=== PATIENT | male | born 1985 | race Caucasian/White ===

== ENCOUNTER 2022-02-10 20:57 | Emergency (ER) | payer OTHER, SELFPAY ==
[2022-02-10 21:21] VITALS: BP 154/99; PULSE 79; RESP 15; TEMP 35.9; O2SAT 100; BMI 28.8
[2022-02-10] MEDS: KETOROLAC 30 MG/ML VIAL IV (22:26)
[2022-02-10 22:27] LABS: Add Manual Diff / Slide Review NO; Basophils Absolute Auto 100 /uL (0-100); Basophils Percent Auto 0.6 % (0-2); Eosinophils Absolute Auto 100 /uL (0-450); Eosinophils Percent Auto 1.2 % (2-4); Hematocrit 42.6 % (41-53); Hemoglobin 15.2 g/dL (13.5-17.5); Lymphocytes Absolute Auto 2200 /uL (1100-4500); Lymphocytes Percent Auto 18.5 % (25-40); Mean Corpuscular HGB Conc 35.7 % (30-36); Mean Corpuscular Hemoglobin 32.2 PG (26-34); Mean Corpuscular Volume 90.3 fL (80-100); Monocytes Absolute Auto 1000 /uL (0-900); Monocytes Percent Auto 8.4 % (3-14); Neutrophils Absolute Auto 8300 /uL (1500-7000); Neutrophils Percent Auto 71.3 % (50-75); Platelet Count 297 X10^3/uL (150-400); Red Blood Cell Count 4.71 X10^6/uL (4.5-5.9); Red Cell Distribution Width 12.5 % (11.6-14.8); White Blood Cell Count 11.7 X10^3/uL (4.5-11.0)
[2022-02-10] MEDS: ONDANSETRON 4 MG/2 ML INJ IV (22:27)
--- NOTE | 2022-02-10 22:31 | DI.CT.S_ITS ---
PROCEDURE: CT KIDNEY URETER BLADDER (KUB) INDICATIONS: lft flank pain TECHNIQUE: Axial sections were acquired from the lung bases to the pubic symphysis. Coronal and sagittal reformats were performed. For radiation dose reduction, the following was used: automated exposure control, adjustment of mA and/or kV according to patient size. COMPARISON: None. FINDINGS: Image quality: Excellent. Lung bases: Unremarkable. Heart: No significant findings. URINARY: Right Kidney: No stones or hydronephrosis. Right Ureter: No hydroureter. Left Kidney: There is a single punctate stone within the collecting system of the middle 3rd of the left kidney and there is mild left-sided hydronephrosis and perinephric edema. Left Ureter: Mildly dilated to to the area just posterior to the bladder margin where a 2 mm calculus can be seen causing hydronephrosis and hydroureter more superiorly. Bladder: Normal wall thickness. No stones. ABDOMEN: Liver: Unremarkable. Gallbladder: Unremarkable. Biliary ducts: Unremarkable. Pancreas: Unremarkable. Spleen: Unremarkable. Adrenal Glands: Unremarkable. Stomach and Bowel: Stomach, small bowel loops, and colon are unremarkable. Peritoneum: No abnormal intraperitoneal fluid. No free air. Ventral Wall: No hernia. Abdominal Nodes: No enlarged retroperitoneal or mesenteric lymph nodes. Vessels: Aorta and inferior vena cava are normal in size. PELVIS: Pelvic Organs: Unremarkable. Pelvic Nodes: Unremarkable. Miscellaneous: No inguinal hernias are seen. Bones: Unremarkable. IMPRESSION: Mild left hydronephrosis and hydroureter associated with a single distal left ureteral stone measuring only 2 mm in diameter. A 2nd left urinary tract calculus is present which is nonobstructive in located within the central collecting system of the left mid kidney measuring approximately 1 mm in diameter. Dictated by: Cezar Funk M.D. on 02/10/2022 at 23:03 Approved by: Cezar Funk M.D. on 02/10/2022 at 23:05
[2022-02-10 22:34] LABS: Alanine Aminotransferase 49 IU/L (<50); Albumin 4.6 g/dL (3.5-5.0); Albumin Globulin Ratio 1.4 (1.0-2.8); Alkaline Phosphatase 81 U/L (38-126); Aspartate Aminotransferase 30 IU/L (17-59); BUN Creatinine Ratio 14.8 (6-22); Blood Urea Nitrogen 19 mg/dL (9-20); Calcium 9.6 mg/dL (8.4-10.2); Carbon Dioxide 28 mmol/L (22-32); Chloride 107 mmol/L (98-107); Estimated Glomerular Filt Rate > 60.0 mL/min (>60); Globulin 3.4 g/dL (1.7-4.1); Glucose 140 mg/dL (70-100); HEMOLYSIS 21 (0-50); Lipase 103 U/L (23-300); Sodium 140 mmol/L (137-145)
--- NOTE | 2022-02-10 22:43 | PC.NURSE ---
c/o left flank pain that radiats around to the front, no hx of kidney stones, pain increases at intervals
--- NOTE | 2022-02-10 23:53 | ED_ITS ---
HPI - Back Pain/Injury General Chief Complaint: Back Pain/Injury Stated Complaint: radiating back pain Time Seen by Provider: 02/10/22 23:53 Source: patient History of Present Illness HPI Narrative: Patient is a 36-year-old male who has a history of glaucoma, presenting with sudden onset of left flank pain. He said he was urinating around 8:00 p.m. when he had sudden onset left flank pain radiating into his groin. Pain got quite intense sharp stabbing and nauseous. He is much better after Toradol. He has never had a history of kidney stones in the past. Related Data Previous Rx's Medication Instructions Recorded hydrocodone 5 mg-acetaminophen 325 1 tab PO Q6H PRN #10 tab 02/11/22 mg tablet ondansetron 4 mg disintegrating 4 mg PO Q6-8H PRN #10 tab 02/11/22 tablet Allergies Allergy/AdvReac Type Severity Reaction Status Date / Time No Known Drug Allergies Allergy Verified 02/10/22 21:21 Review of Systems Review of Systems Narrative: GENERAL: Denies chills, fatigue, malaise, fever, sweats, travel HEENT: Denies sinus pain, ear pain, sore throat, difficulty swallowing, neck pain RESPIRATORY: Denies dyspnea, cough, wheezing, hemoptysis, sputum. CARDIOVASCULAR: Denies chest pain, palpitations, orthopnea, edema GASTROINTESTINAL: Denies nausea, vomiting, abdominal pain, diarrhea, constipation, melena. : See HPI MUSCULOSKELETAL: Denies weakness, joint pain, or bony pain SKIN: No rash, no erythema, no pruritus NEUROLOGIC: Denies weakness, dizziness, headache, numbness, change in speech, confusion PSYCHIATRIC: No concerning psychosocial issues. 12 point review of systems is negative except for those stated above and HPI Patient History Social History Smoking Status: Never smoker Smoking Status: Never smoker alcohol intake frequency: a few times a month Substance Use Type: does not use Exam Initial Vital Signs Initial Vital Signs: Vital Signs Temperature 96.7 F L 02/10/22 21:21 Pulse Rate 79 02/10/22 21:21 Respiratory Rate 15 02/10/22 21:21 Blood Pressure 154/99 H 02/10/22 21:21 Pulse Oximetry 100 02/10/22 21:21 GENERAL: Alert 36-year-old male appears comfortable sitting in chair after toradol in no acute distress. HEENT: Head atraumatic,EOMI, pupils reactive, face symmetric, moist mucous membranes CARDIOVASCULAR: Regular rate and rhythm without murmurs, rubs or gallops. RESPIRATORY: Breath sounds equal bilaterally, no wheezes rales or rhonchi. ABDOMEN: Soft, nontender. Normoactive bowel sounds all 4 quadrants. No guarding or rebound. : Minimal left CVA tenderness EXTREMITIES: Normal range of motion, no clubbing or edema. Neurovascularly intact NEUROLOGICAL: Alert and oriented x4.Normal gait and speech. SKIN: Warm, dry, no laceration, no petechiae, no rashes or lesions. Course Orders Ordered: ED Orders 02/10/22 22:14 Complete Blood Count AUTO DIFF Stat Comprehensive Metabolic Panel Stat Lipase Stat 02/10/22 22:31 CT kidney ureter bladder (KUB) Stat Discontinued Medications Hydrocodone Bitart/Acetaminophen (Hydrocodone/Acet 5/325 Prepack) 1 bottle MISC SEEINSTR ONE Stop: 02/11/22 00:13 Last Admin: 02/11/22 00:17 Dose: 1 bottle Documented by: MITCH Ketorolac Tromethamine (Ketorolac 30 Mg/Ml Vial) 30 mg IV NOW ONE Stop: 02/10/22 22:21 Last Admin: 02/10/22 22:26 Dose: 30 mg Documented by: MITCH Morphine Sulfate (Morphine 4 Mg/Ml Inj) 4 mg IV NOW ONE Stop: 02/11/22 00:13 Last Admin: 02/11/22 00:17 Dose: 4 mg Documented by: IMTCH Ondansetron HCl (Ondansetron 4 Mg/2 Ml Inj) 4 mg IV NOW ONE Stop: 02/10/22 22:21 Last Admin: 02/10/22 22:27 Dose: 4 mg Documented by: MITCH Vital Signs Vital signs: Vital Signs - 8 hr 02/10/22 21:21 02/11/22 00:29 Temperature 96.7 F L Pulse Rate 79 89 Respiratory Rate 15 16 Blood Pressure 154/99 H 141/89 H Pulse Oximetry 100 99 MDM - Back Pain/Injury Lab Data Result diagrams: 02/10/22 22:14 02/10/22 22:14 Labs: Lab Results 02/10/22 02/10/22 Range/Units 22:14 22:14 WBC 11.7 H (4.5-11.0) X10^3/uL RBC 4.71 (4.5-5.9) X10^6/uL Hgb 15.2 (13.5-17.5) g/dL Hct 42.6 (41-53) % MCV 90.3 (80-100) fL MCH 32.2 (26-34) PG MCHC 35.7 (30-36) % RDW 12.5 (11.6-14.8) % Plt Count 297 (150-400) X10^3/uL Neut % (Auto) 71.3 (50-75) % Lymph % (Auto) 18.5 L (25-40) % [place] % (Auto) 8.4 (3-14) % Eos % (Auto) 1.2 L (2-4) % Baso % (Auto) 0.6 (0-2) % Neut # (Auto) 8300 H (8612-9625) /uL Lymph # (Auto) 2200 (7873-7260) /uL [place] # (Auto) 1000 H (0-900) /uL Eos # (Auto) 100 (0-450) /uL Baso # (Auto) 100 (0-100) /uL Sodium 140 (137-145) mmol/L Potassium 4.0 (3.4-5.1) mmol/L Chloride 107 (98-107) mmol/L Carbon Dioxide 28 (22-32) mmol/L BUN 19 (9-20) mg/dL Creatinine 1.28 H (0.66-1.25) mg/dL Estimated GFR > 60.0 (>60) mL/min BUN/Creatinine Ratio 14.8 (6-22) Glucose 140 H (70-100) mg/dL Calcium 9.6 (8.4-10.2) mg/dL Total Bilirubin 1.0 (0.2-1.3) mg/dL AST 30 (17-59) IU/L ALT 49 (<50) IU/L Alkaline Phosphatase 81 (38-126) U/L Total Protein 8.0 (6.3-8.2) g/dL Albumin 4.6 (3.5-5.0) g/dL Globulin 3.4 (1.7-4.1) g/dL Albumin/Globulin Ratio 1.4 (1.0-2.8) Lipase 103 (23-300) U/L Urine Dip Bedside Urine Glucose Negative Bedside Urine Bilirubin - Negative Bedside Urine Ketone - Negative Urine Specific [place] 1.020 Bedside Urine Occult Blood + Bedside Urine pH 6.0 Bedside Urine Protein +/- 15 Bedside Urine Urobilinogen - Negative Bedside Urine Nitrite - Negative Bedside Urine Leukocytes - Negative Esterase Imaging Data CT scan - abdomen/pelvis: Radiologist's Impression: PROCEDURE:? CT KIDNEY URETER BLADDER (KUB) ? INDICATIONS:? lft flank pain ? TECHNIQUE:? Axial sections were acquired from the lung bases to the pubic symphysis.? Coronal and sagittal reformats were performed.? For radiation dose reduction, the following was used: ?automated exposure control, adjustment of mA and/or kV according to patient size.? ? COMPARISON:? None. ? FINDINGS:? Image quality:? Excellent.? ? Lung bases:? Unremarkable.? ? Heart:? No significant findings. ? URINARY: Right Kidney: ? No stones or hydronephrosis.? Right Ureter:? No hydroureter.? ? Left Kidney:? There is a single punctate stone within the collecting system of the middle 3rd of the left kidney and there is mild left-sided hydronephrosis and perinephric edema. ? Left Ureter:? Mildly dilated to to the area just posterior to the bladder margin where a 2 mm calculus can be seen causing hydronephrosis and hydroureter more superiorly.? ? Bladder:? Normal wall thickness. No stones. ? ? ? ABDOMEN: Liver:? Unremarkable.? ? Gallbladder:? Unremarkable.? ? Biliary ducts:? Unremarkable.? ? Pancreas:? Unremarkable.? ? Spleen:? Unremarkable.? ? Adrenal Glands:? Unremarkable.? ? ? Stomach and Bowel:? Stomach, small bowel loops, and colon are unremarkable.? Peritoneum:? No abnormal intraperitoneal fluid.? No free air.? ? Ventral Wall: ? No hernia.? Abdominal Nodes:? No enlarged retroperitoneal or mesenteric lymph nodes.? Vessels:? Aorta and inferior vena cava are normal in size.? ? PELVIS: Pelvic Organs:? Unremarkable.? ? Pelvic Nodes: Unremarkable. Miscellaneous: No inguinal hernias are seen. ? ? ? Bones:? Unremarkable. ? IMPRESSION:? ? Mild left hydronephrosis and hydroureter associated with a single distal left ureteral stone measuring only 2 mm in diameter.? A 2nd left urinary tract calculus is present which is nonobstructive in located within the central collecting system of the left mid kidney measuring approximately 1 mm in diameter. ? ? ? Dictated by: Cezar Funk M.D. on 02/10/2022 at 23:03? [facility] Narrative Medical decision making narrative: Patient is found to have kidney stone on the left side. No sign of infection. Creatinine is slightly elevated at 1.2 no priors to compare. He also has a 2nd stone in the kidney. Pain is significantly better after Toradol but it is starting to come back. Recommend outpatient follow-up Discharge Plan Departure Patient Disposition: Home Clinical Impression: Kidney stone on left side Instructions: DI for Kidney Stones Activity Restrictions/Additional Instructions: *You have been diagnosed with sided kidney stone *What to do: Use a strainer to strain your urine. Try to catch stone bring it into your PCP for evaluation. *Continue to take medications as directed Motrin 600 mg every 8 hours if needed for [id number] Zofran 4 mg every 6-8 hours if needed for nausea or vomiting [place] 1 tablet every 6 hours if needed for severe pain *Follow up with your primary care provider in 2-3 days or call [phone] *Return to ER if you should have increasing pain, fever, persistent vomiting or any new, worsening or concerning symptoms CONTROLLED SUBSTANCE DISCHARGE (Narcotoic/benzodiazepine/Flexeril/Phenergan) 1. You have been prescribed narcotic medications, it does have acetaminophen/ Tylenol/paracetamol in it, DO NOT TAKE MORE THAN 4,00mg in 24 hours of Tylenol. TRAMADOL DOES NOT CONTAIN TYLENOL 2. Please understand that we cannot provide further refills of narcotics, benzodiazepines or controlled substances through the ED and her pain management will need to be through your provider. 3. While on these medications you cannot drive or operate heavy machinery. 4. You cannot sign legal documents or perform any duties such as this. 5. As long as you're taking opiate pain medications he should also be taking a stool softener such as Colace, Dulcolax, MiraLAX or prune juice, to help avoid constipation. Prescriptions: New hydrocodone-acetaminophen 5-325 mg tablet 1 tab PO Q6H PRN (Reason: pain) Qty: 10 0RF ondansetron 4 mg tablet,disintegrating 4 mg PO Q6-8H PRN (Reason: nausea and vomiting) Qty: 10 0RF
[2022-02-11] MEDS: HYDROCODONE/ACET 5/325 PREPACK 1 BOTTLE MISC (00:17)
[2022-02-11] MEDS: MORPHINE 4 MG/ML INJ IV (00:17)
[2022-02-11 00:29] VITALS: BP 141/89; PULSE 89; RESP 16; O2SAT 99
== END 2022-02-11 00:30 | disposition home or self-care (01) ==
PROVIDERS: Emergency Provider Emergency Medicine
DX: N20.0 Calculus of kidney (principal)
CPT/HCPCS: 36415; 74176; 80053; 81003; 83690; 85025; 96374; 96375; 99284; J1885; J2270; J2405